=== PATIENT | male | born 1990 | race Caucasian/White ===

== ENCOUNTER 2016-10-27 17:57 | Emergency (ER) | payer MEDICAID, OTHER ==
[~2016-10-27] VITALS: Ht 177.8 cm; Wt 63.6 kg
[2016-10-27 18:33] VITALS: Ht 177.8 cm; Wt 63.6 kg
[2016-10-27] MEDS ORDERED: PERM1LIQ MC (18:42)
--- NOTE | 2016-10-27 19:10 | ERD ---
ER Documentation Chief Complaint Date/Time DATE: 10/27/16 TIME: 19:08 Chief Complaint LICE CLEARANCE HPI Patient is a 37-year-old male who presents to the ED for "lice clearance." He was sent here from [facility] to make sure that he does not have lice as one of the other members had lice. Denies any symptoms today. Denies itchiness or pain. No complaints today ROS All systems reviewed and are negative except as per history of present illness. Medications Home Meds Active Scripts Permethrin (Permethrin) 1 Gm Liquid, 1 GM MC BID for 7 Days Prov:LISA SANTAMARIA PA-C 10/27/16 Allergies Allergies: Coded Allergies: No Known Allergy (Unverified , 10/27/16) Physical Exam Vitals Vital Signs Date Time Temp Pulse Resp B/P Pulse Ox O2 Delivery O2 Flow Rate FiO2 10/27/16 18:33 100.0 100 18 131/690 97 Physical Exam GENERAL: Well-developed, well-nourished male. Appears in no acute distress. HEAD: Normocephalic, atraumatic. EYES: Pupils are equally reactive bilaterally. EOMs grossly intact. No conjunctival erythema. LUNG: Clear to auscultation bilaterally. No rhonchi, wheezing, rales or coarse breath sounds. HEART: Regular rate and rhythm. No murmurs, rubs or gallops. NEUROLOGIC: Alert and oriented. Moving all four extremities. 5/5 strength in all extremities. Normal speech. Steady gait. SKIN: Normal color. Warm and dry. No rashes or lesions. Capillary refill < 2 seconds Procedures/MDM ER COURSE: I kept the patient and/or family informed of laboratory and diagnostic imaging results throughout the emergency room course MEDICAL DECISION MAKING: This is a 37-year-old male who presents with lice clearance. Vital signs were reviewed. Patient is afebrile. Patient is not hypoxic. Patient is nontoxic or ill-appearing. Patient does not have lice today. Low suspicion for necrotizing fasciitis, SJS, toxic epidermal necrolysis, Kawasaki, erythema multiforme, gangrene, scarlet fever, meningococcemia, sepsis, anaphylaxis. DISCHARGE: At this time, patient is stable for discharge and outpatient management with no new complaints during the ER course. Patient was sent home with permethrin. Patient will be discharged home with instructions to recheck for new or worsening symptoms such as fever, nausea, weakness, LOC and to follow up with primary care in the next 1-2 days. Patient was advised to return to the ER for any new or worsening symptoms. Plan was discussed and patient and/or family understands and agrees. Home instructions were given. Departure Diagnosis: Primary Impression: Screening for head lice Condition: Stable Patient Instructions: Head Lice Additional Instructions: Call your primary care doctor TOMORROW for an appointment during the next 1-2 days.See the doctor sooner or return here if your condition worsens before your appointment time. LISA SANTAMARIA PA-C Oct 27, 2016 19:10
== END 2016-10-27 18:44 | disposition home or self-care (01) ==
LOC: E/R 17:57
DX: Z20.7 Contact with and (suspected) exposure to pediculosis, acariasis and other infestations (principal)
CPT/HCPCS: 99283